=== PATIENT | male | born 1965 | race Caucasian/White ===

== ENCOUNTER 2021-02-06 14:00 | Observation (INO) | payer BC ==
[2021-02-05 11:11] LABS: BASOPHILS % (AUTO) 0.8 % (0.0-5.0); EOSINOPHILS % (AUTO) 4.6 % (0.0-8.0); HEMATOCRIT 43.5 % (42-54); MEAN CORPUSCULAR HEMOGLOBIN 28.5 pg (27.0-33.0); MEAN CORPUSCULAR HGB CONC 31.7 g/dL (32.0-36.0); MEAN CORPUSCULAR VOLUME 89.9 fL (79-99); MONOCYTES % (AUTO) 8.5 % (3.0-13.0); NEUTROPHILS % (AUTO) 60.8 % (40.0-77.0); PLATELET COUNT (AUTO) 306 K/uL (130-400); RED BLOOD CELL COUNT(AUTO) 4.84 MIL/uL (4.50-6.20); RED CELL DISTRIBUTION WIDTH 13.3 % (11.0-15.5); WHITE BLOOD COUNT (AUTO) 6.1 K/uL (4.8-10.8)
[2021-02-05 11:14] LABS: POTASSIUM 4.3 mmol/L (3.5-5.1)
[~2021-02-06] VITALS: Ht 182.9 cm; Wt 90.4 kg
[2021-02-11 11:02] VITALS: BP 103/76
[2021-02-12] VITALS (23 sets, daily range): BP systolic 89–123; BP diastolic 46–76
[2021-02-12] MEDS ORDERED: CEFAZOLIN SODIUM 1 GM VIAL ONE ×2 (06:48→07:08)
[2021-02-12] MEDS ORDERED: DURAMORPH PF1 MG/ML 10ML AMP IV ONE (06:48)
[2021-02-12] MEDS ORDERED: BUPIVACAINE/EPI/PF 0.25% 30ML VIAL IJ ONE (06:48)
[2021-02-12] MEDS ORDERED: LACTATED RINGERS 1000ML 1,000 ML IV ONE (07:08)
[2021-02-12] MEDS ORDERED: SUCCINYLCHOLINE CHLORIDE 20 MG/ML 10 ML VIAL ONE (07:25)
[2021-02-12] MEDS ORDERED: LIDOCAINE PF 2% 5ML ABBOJECT ONE (07:25)
[2021-02-12] MEDS ORDERED: MIDAZOLAM HCL 1 MG/ML 2ML VIAL ONE ×2 (07:27→08:09)
[2021-02-12] MEDS ORDERED: ONDANSETRON HCL 4 MG/2 ML VIAL ONE (07:27)
[2021-02-12] MEDS ORDERED: DEXAMETHASONE SOD PHOSPHATE 10MG/ML 1ML VIAL ONE ×2 (07:27→08:07)
[2021-02-12] MEDS ORDERED: GLYCOPYRROLATE 1 MG/5 ML SYRINGE ONE (07:27)
[2021-02-12] MEDS ORDERED: ROCURONIUM 10MG/1ML SYR 10 MG/ML ML ONE ×2 (07:27→09:16)
[2021-02-12] MEDS ORDERED: PROPOFOL 10 MG/ML 20ML VIAL IV ONE (07:27)
[2021-02-12] MEDS ORDERED: NEOSTIGMINE 5MG/5ML SYR IV ONE (07:27)
[2021-02-12] MEDS ORDERED: FENTANYL CITRATE PF 50 MCG/1 ML 2ML VIAL ONE ×2 (07:28→09:16)
[2021-02-12] MEDS ORDERED: THROMBIN-JMI 20000 UNIT KIT TP ONE (08:02)
[2021-02-12] MEDS ORDERED: PHENYLEPHRINE HCL 10 MG/ML 1ML VIAL IV ONE (09:27)
[2021-02-12] MEDS ORDERED: PROMETHAZINE HCL 25 MG/ML 1ML AMPULE IM PRN (11:30)
[2021-02-12] MEDS ORDERED: SODIUM CHLORIDE 0.9% 10 ML VIAL IVP PRN (11:30)
[2021-02-12] MEDS ORDERED: MORPHINE SULFATE 2 MG/ML 1ML SYG IVP PRN (11:30)
[2021-02-12] MEDS ORDERED: HYDROCODONE/ACETAMINOPHEN 5/325 MG TAB PO PRN (11:30)
[2021-02-12] MEDS: LACTATED RINGERS 1000ML 1,000 ML IV SCH ×2 (13:15→23:49)
[2021-02-12] MEDS: DEXAMETHASONE SOD PHOSPHATE 4 MG/ML 1ML VIAL IVP SCH ×3 (13:26→23:17)
[2021-02-12] MEDS ORDERED: CEFAZOLIN SODIUM 1 GM VIAL IVP SCH (14:00)
[2021-02-13] VITALS: BP 96/55
[2021-02-13 04:00] VITALS: BP 90/60
[2021-02-13] MEDS: DEXAMETHASONE SOD PHOSPHATE 4 MG/ML 1ML VIAL IVP SCH (04:59)
== END 2021-02-13 09:00 | disposition home or self-care (01) ==
LOC: EDSTATUS 14:00 → DAHIP 02-12 05:58 → 3AH 02-12 12:38
PROVIDERS: ADMIT Neurological Surgery; ATTEND Neurological Surgery
DX: M51.17 Intervertebral disc disorders with radiculopathy, lumbosacral region (principal); Z20.822 Contact with and (suspected) exposure to COVID-19
CPT/HCPCS: 36415; 63047; 71045; 72020; 80051; 82948; 85025; 93005; 96361 ×2; 96374; 96375; 96376 ×2; A4215; A4221; A4222; A4223; A4344; A4649 ×3; A4663; A4930; A6260; G0378 ×27; J0330; J0690 ×3; J1100 ×6; J2001; J2250 ×2; J2274; J2370; J2405; J2704; J2710; J3010 ×2; J3490 ×2; J7120 ×2; U0003

== ENCOUNTER → 2022-02-02 | Outpatient (CLI) | payer BC ==
[~2022-02-02] MED LIST: GADOTERATE MEGLUMINE 10 MMOL/20 ML VIAL IV ONE
== END | disposition home or self-care (01) ==
LOC: RAH 07:47
PROVIDERS: ATTEND Family Medicine
DX: M54.16 Radiculopathy, lumbar region (principal); D16.6 Benign neoplasm of vertebral column; M51.27 Other intervertebral disc displacement, lumbosacral region; M48.07 Spinal stenosis, lumbosacral region; Z98.890 Other specified postprocedural states
CPT/HCPCS: 72158; A9575